=== PATIENT | male | born 1985 | race Two or more races ===

== ENCOUNTER 2021-11-14 23:48 | Emergency (ER) | payer MEDICAID, OTHER ==
[~2021-11-14] VITALS: Ht 165.1 cm; Wt 65.8 kg
[2021-11-14 23:52] VITALS: BP 148/74
[2021-11-15] MEDS ORDERED: LORAZEPAM 1 MG TABLET PO ONE
--- NOTE | 2021-11-15 00:06 | NUR ---
Patient eloped from facility. ER MD notified.
== END 2021-11-15 00:21 | disposition left against medical advice (07) ==
LOC: ER 23:52
DX: F41.9 Anxiety disorder, unspecified (principal)

== ENCOUNTER 2023-11-17 22:48 | Emergency (ER) | payer OTHER ==
[~2023-11-17] VITALS: Ht 172.7 cm; Wt 61.2 kg
[2023-11-17 23:01] VITALS: BP 141/91; TEMP 98.6; O2SAT 98
== END 2023-11-18 01:54 | disposition left against medical advice (07) ==
LOC: ER 22:56
DX: F31.9 Bipolar disorder, unspecified (principal); Z53.21 Procedure and treatment not carried out due to patient leaving prior to being seen by health care provider